=== PATIENT | female | born 1935 | race African-American/Black ===

== ENCOUNTER 2017-01-08 13:46 | Emergency (ER) | payer MEDICARE, MEDICAID ==
--- NOTE | 2017-01-08 15:03 | RAD ---
PA CHEST RADIOGRAPH WITH RIGHT RIB SERIES: Date: 01-08-17 Provided Clinical History: Chest pain status post fall. FINDINGS: Comparison is made with 10-24-12. The cardiac silhouette appears enlarged. Left subclavian cardiac pacing device is again noted in sim ilar position. There is no evidence for a displaced right sided rib fracture, pleural fluid or pneum othorax. IMPRESSION: No evidence for an acute cardiopulmonary process or displaced rib fracture. POS: [facility]
[2017-01-08] MEDS ORDERED: Naproxen 500 MG TAB ONE (15:17)
[2017-01-08] MEDS ORDERED: HYDROcodone/Acetaminophen 10/325 mg Tablet ONE (15:17)
== END 2017-01-08 15:24 | disposition home or self-care (01) ==
LOC: MADERS 13:46
DX: S20.211A Contusion of right front wall of thorax, initial encounter (principal); E78.5 Hyperlipidemia, unspecified; I25.10 Atherosclerotic heart disease of native coronary artery without angina pectoris; E03.9 Hypothyroidism, unspecified; I10 Essential (primary) hypertension; Z95.0 Presence of cardiac pacemaker; W01.0XXA Fall on same level from slipping, tripping and stumbling without subsequent striking against object, initial encounter

== ENCOUNTER 2017-03-15 12:02 | Outpatient (CLI) | payer MEDICAID, MEDICARE ==
[2017-03-15 12:51] LABS: #Basophils 0.1 thou/uL (0.0-0.2); #Eosinphils 0.2 thou/uL (0.0-0.7); #Monocytes 0.2 thou/uL (0.11-0.59); #Neutrophils 1.9 thou/uL (1.40-6.50); %Basophils 2.5 % (0.0-1.0); %Eosinophils 7.3 % (0.0-10.0); %Lymphocytes 28.4 % (21.0-51.0); %Monocytes 6.4 % (0.0-10.0); %Neutrophils 55.4 % (42.0-75.0); Hemoglobin 11.6 g/dL (12.0-16.0); Mean Corpuscular HGB CONC 32.4 g/dL (32.0-36.0); Mean Corpuscular Hemoglobin 30.6 pg (27.0-31.0); Mean Corpuscular Volume 94.4 fl (81.0-99.0); Mean Platelet Volume 10.3 fL (7.4-10.4); Platelet Count 182 thou/uL (130-400); RBC Distribution Width 13.9 % (11.5-14.5); Red Blood Cell (RBC) Count 3.81 mill/uL (4.20-5.40); White Blood Cell (WBC) Count 3.4 thou/uL (4.8-10.8)
[2017-03-15 13:07] LABS: ALT (SGPT) 11 U/L (8-55); AST (SGOT) 21 U/L (5-34); Albumin 4.2 g/dL (3.4-4.8); Alkaline Phosphatase 73 U/L (40-150); Anion Gap 16 mmol/L (10-20); BUN (Urea Nitrogen) 23 mg/dL (9.8-20.1); Bilirubin, Direct 0.1 mg/dL (0.1-0.3); Bilirubin, Total 0.4 mg/dL (0.2-1.2); Calc. Creatinine Clearance 0 mL/min (70-130); Calcium 10.5 mg/dL (7.8-10.44); Carbon Dioxide 22 mmol/L (23-31); Cardiac Risk 3.6 (Less than 4.5); Chloride 109 mmol/L (98-107); Cholesterol 180 mg/dl (< 200 Desired); Estimated GFR-MDRD 47; Glucose 75 mg/dL (83-110); HDL Cholesterol 50 mg/dL (>60 Neg Risk); LDL Cholesterol, Calculated 114 mg/dL; Potassium 4.3 mmol/L (3.5-5.1); Protein, Total 7.8 g/dL (6.0-8.3); Sodium 143 mmol/L (136-145); Triglycerides 82 mg/dL (Less than 150)
== END 2017-03-15 12:03 | disposition home or self-care (01) ==
LOC: MADLABBHPM 12:02
PROVIDERS: ATTEND Family Medicine
DX: E78.5 Hyperlipidemia, unspecified (principal); E03.9 Hypothyroidism, unspecified; N18.3 Chronic kidney disease, stage 3 (moderate)
CPT/HCPCS: 36415; 80048; 80061; 80076; 84443; 85025

== ENCOUNTER 2020-05-21 14:42 | Inpatient (IN) | payer MEDICARE, OTHER ==
[2020-05-21] MEDS ORDERED: D5W-AA 4.25% with LYTES 1,000 ML BAG IV SCH (17:15)
[2020-05-21] MEDS: D5W-AA 4.25% with LYTES 1,000 ML IV SCH (19:30)
[2020-05-21] MEDS: hydrALAZINE 25 MG TAB PO SCH (22:00)
[2020-05-21] MEDS: Amlodipine 5 MG TAB PO SCH (22:00)
[2020-05-22] MEDS: D5W-AA 4.25% with LYTES 1,000 ML IV SCH ×2 (05:18→21:26)
[2020-05-22] MEDS: Levothyroxine Sodium 75 MCG TAB PO SCH ×2 (05:20→05:48)
[2020-05-22 05:57] LABS: Anion Gap 15 mmol/L (10-20); BUN (Urea Nitrogen) 47 mg/dL (9.8-20.1); Calc. Creatinine Clearance 30 mL/min (70-130); Calcium 9.3 mg/dL (7.8-10.44); Carbon Dioxide 19 mmol/L (23-31); Chloride 108 mmol/L (98-107); Estimated GFR-MDRD 60; Glucose 117 mg/dL (83-110); Potassium 5.1 mmol/L (3.5-5.1); Sodium 137 mmol/L (136-145)
[2020-05-22 06:34] LABS: Hemoglobin 11.8 g/dL (12.0-16.0); Mean Corpuscular HGB CONC 31.2 g/dL (32.0-36.0); Mean Corpuscular Hemoglobin 27.9 pg (27.0-31.0); Mean Corpuscular Volume 89.5 fL (78.0-98.0); Mean Platelet Volume 9.2 fL (7.4-10.4); Platelet Count 329 thou/uL (130-400); RBC Distribution Width 12.1 % (11.5-14.5); Red Blood Cell (RBC) Count 4.22 mill/uL (4.20-5.40)
[2020-05-22 06:35] LABS: Manual Diff?? YES
[2020-05-22 06:38] LABS: Band 1 % (5-11); Lymphocytes 7 % (21-51); MDiff Complete? YES; Monocytes 4 % (0-10); Neutrophil 88 % (42-75)
[2020-05-22 06:39] LABS: Anisocytosis SLIGHT = 6-15 cells (100X) (0-5/hpf); Platelet Morphology Comment Appears Adequate; Poikilocytosis SLIGHT = 6-15 cells (100X) (0-5/hpf)
--- NOTE | 2020-05-22 07:59 | HP ---
CHIEF COMPLAINT: Weak and not eating. HISTORY OF PRESENT ILLNESS: The patient is an 84-year-old Krish female, who has a history of hypertension, coronary artery disease, and sick sinus syndrome, who also has a pacemaker. She has been losing weight prior to this admission. The patient lives with her older sister and has a niece who helps take care of the two of them. The patient was hospitalized at [facility] from 05/16/2020 until 05/21/2020. The patient was taken to the emergency room because she had had a decline in her mental status and she seemed weaker than usual and had some mild diarrhea. Her sister had tested positive for COVID the day before. The patient was hospitalized at [facility] and found to have a COVID pneumonia with chest x- ray showing bilateral mid lower lobe infiltrates. Her COVID nasal swab was positive on 05/16/2020 and her SARS-CoV-2 IgG antibody was positive with a number of 5.75 on 05/17. The patient was treated symptomatically. Her O2 saturation remained good and she did not require any high flow oxygen. She had a positive blood culture for strep pneumonia that was felt to be contamination. Her second blood culture had no growth. Her urine culture grew E coli with a colony count greater than 100,000 and with gardner sensitivity. The patient was treated supportively. The patient was initially treated with IV antibiotics for the UTI as she would not take oral medication. She did stabilize and felt that her COVID infection had been present for 2- to 3-week period since her antibody test was positive on 05/17. The patient was placed on Megace to try to stimulate her appetite and also was started on Clinimix E 75 mL/hr that is being given through a peripheral IV intended to use for about a week. The patient was transferred to [facility] for continuation of the IV Clinimix and also for physical therapy to try to work with her in an effort to try to improve her general functional capabilities. The patient was seen soon after her admission. She was awake, but could not give me any history of what had happened to her and did not know where she was. She did not understand the situation that she had been in. 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 The patient has undergone a previous EGD, found to have two large gastric ulcers. EGD with two large ulcers was on 05/14/2014. Biopsy showed no malignancy. This was done for GI bleed, but did not require transfusion. The patient has had previous EGD in 2009 that was normal. The patient has had a partial thyroidectomy for benign thyroid nodule. The pacemaker replacement was in October 2012. EF at that time was 55% to 60%. PRESENT MEDICATIONS: 1. Sertraline 25 mg at bedtime. 2. Amlodipine 5 mg at bedtime. 3. Acetaminophen 325 mg daily. 4. Aspirin 81 mg daily. 5. Clinimix E 75 mg IV. 6. Ferrous sulfate 325 mg daily. 7. Levothyroxine 75 mcg daily. 8. Pantoprazole 40 mg daily. 9. Megace 400 mg daily. 10. Florastor 250 mg daily. 11. Simvastatin 20 mg at bedtime. 12. Hydralazine 25 mg t.i.d. ALLERGIES: NO KNOWN ALLERGIES. REVIEW OF SYSTEMS: CONSTITUTIONAL: The patient does not know if she has had any recent fever or gained or lost any weight. HEAD AND NECK: The patient denies any runny nose or sore throat. PULMONARY: The patient denies any shortness of breath or cough. CARDIOVASCULAR: No chest pain. GI: The patient says she is not hungry, has not been eating. She has had no nausea, vomiting, or diarrhea. : The patient has been incontinent of urine. DERMATOLOGIC: The patient has had no rash or skin breakdown. NEUROLOGIC: The patient has not been noted to have any focal weakness, but is very confused. HABITS: Alcohol, none. Tobacco, none. SOCIAL HISTORY: The patient resides with an older sister and with a niece, who helps take care of her. Ordinarily, the patient is able to assist with all her ADLs. CODE STATUS: Full code. PHYSICAL EXAMINATION: GENERAL: Shows an 84-year-old Krish female, who is lying in bed. She is alert and is cooperative. The patient did not recognize who I was and she did not know that she was in [place]. She does not appear in any acute distress. VITAL SIGNS: Show a temperature of 97.1, pulse 69, respirations 19, O2 saturation 96% on room air, blood pressure 172/72. Her weight is 110. HEENT: Head, normocephalic and atraumatic. Ears, TMs are blocked by a small amount of cerumen. Eyes, pupils are equal, round, and reactive. Sclerae nonicteric. There is no discharge from the eyes. Nose, normal. Mouth and throat, mucous membranes are moist. The patient is edentulous. NECK: Carotids are equal and strong. No bruits. Thyroid, not enlarged. LUNGS: The patient will not take a deep breath. With the shallower breath sounds, they sound clear. HEART: Regular rate. The patient has a pacemaker in the left upper anterior chest. ABDOMEN: Scaphoid with no organomegaly. No areas of tenderness. EXTREMITIES: No edema. SKIN: No rash or ulcerations or breakdown. NEUROLOGIC: The patient is alert but disoriented to time, place and situation. She did not recognize me, who has been taking care of her for many years. She has some generalized weakness that is nonfocal. IMPRESSION: 1. Severe generalized weakness. a. Secondary to severe deconditioning from recent COVID pneumonia. 2. COVID-19 pneumonia. a. Hospitalized at [facility] from 05/16 until 05/21/2020 for the pneumonia. b. Chest x-ray showed bilateral mid and lower infiltrates. c. 05/16 COVID nasal swab positive for COVID-19. d. IgG antibody for SARS-CoV-2 IgG antibody positive with reading of 5.75. e. Improved and not requiring any supplemental O2. 3. Anorexia. a. Complicated by weight loss. b. Has been started on Megace. c. Has been placed on Clinimix IV for a week to try to help with her malnutrition. 4. Hypertension. 5. Dementia. 6. Bradycardia for which she has a pacemaker. 7. Coronary artery disease. 8. History of depression. 9. Hyperlipidemia. 10. History of anemia. 11. History of generalized osteoarthritis. 12. Gastroesophageal reflux disease. 13. Hypothyroidism. PLAN: The patient has been admitted to [facility] for continuation of the Clinimix in an effort to try to improve her malnutrition. The patient presently not eating. She has recently been placed on Megace to try to help stimulate her appetite. We will have Dietary see her and offer other suggestions. Physical Therapy and Occupational Therapy will see her to try to improve her general functional capabilities. For now, we will continue her in isolation since she has recently tested positive for COVID on 05/16. Her antibodies were positive on , indicating that this may be an infection that started two or three weeks prior to that. The patient presently is a full code. We will stop her simvastatin, do not feel like this has added anything with this patient's particular problems and age. Recheck CBC and CMP and TSH in the morning. Job ID: [id number] MTDD
[2020-05-22] MEDS: hydrALAZINE 25 MG TAB PO SCH ×3 (10:30→20:11)
[2020-05-22] MEDS: Saccharomyces boulardii 250 MG CAP PO SCH (10:30)
[2020-05-22] MEDS: Aspirin 81 mg Enteric Coated Tablet PO SCH (10:30)
[2020-05-22] MEDS: Megestrol Acetate 400 MG/10 ML UDCUP PO SCH (10:30)
--- NOTE | 2020-05-22 12:57 | PRG ---
DATE OF SERVICE: 05/22/2020 SUBJECTIVE: The patient is back in her bed. Physical therapist and occupational therapist were able to lift her up into a bedside chair for a short period, but then she has been placed back in bed, did not tolerate in the chair for too long. The patient is still not eating much. She said she ate, but there is no report that she did much. OBJECTIVE: GENERAL: The patient is lying in bed, alert, does not appear in any acute distress. VITAL SIGNS: Show temperature 97.7, pulse 66, respiration 18, O2 saturation 96% on room air, blood pressure 145/61. LUNGS: Clear. HEART: Regular rate. EXTREMITIES: No edema. LABORATORY DATA: Shows an H and H of 11.8 and 37.7, white blood cell count 7000 , 88% segs, 1% bands, 7% lymphocytes. Her sodium is 137, potassium 5.1, BUN is 47 , creatinine 1.05, glucose 117. ASSESSMENT: 1. Severe generalized weakness. a. Secondary to severe deconditioning from recent COVID pneumonia. 2. COVID-19 pneumonia. a. Hospitalized at [facility] from 05/16 until 05/21/2020 for pneumonia. b. Chest x-ray showed bilateral mid and lower lobe infiltrates. c. COVID-19 nasal swab positive on 05/16. SARS-CoV-2 IgG antibody positive with reading of 5.75 on 05/17. d. Clinically improved, not requiring any supplemental O2 as of 05/22. 3. Anorexia. a. Complicated by weight loss. Etiology of this is certainly contributed to by the COVID infection, but some of this had already begun prior to the COVID. Suspect that this may just be a decline associated with more advanced dementia. b. Has been placed on Megace. c. Has been placed on Clinimix IV for a week to try to help with the malnutrition. 4. Hypertension. 5. Advanced dementia. a. Suspect much of the anorexia and weight loss are from the advanced stages of the dementia. 6. 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 7. Coronary artery disease, asymptomatic. 8. History of depression. 9. Hyperlipidemia. 10. History of anemia. 11. History of generalized osteoarthritis. 12. Gastroesophageal reflux disease. 13. Hypothyroidism. PLAN: We will continue the isolation. With the SARS-CoV-2 IgG antibody positive on 05/17, suspect that her original infection has started 2 to 3 weeks previously. The patient though will need to remain in isolation at least for a 20-day period from onset, which is not known based on the antibody test of possible 2 to 3-week interval, then this onset may have been 05/05 approximately, that would put her presently at 18 days from onset for isolation. We will continue the isolation at least for another 3 days. Job ID: [id number] MTDD
[2020-05-22 13:49] LABS: Alkaline Phosphatase 63 U/L (40-110); Bilirubin, Total 0.2 mg/dL (0.2-1.2); Globulin 3.6 g/dL (2.4-3.5); Protein, Total 6.6 g/dL (5.8-8.1)
[2020-05-22 13:51] LABS: ALT (SGPT) 58 U/L (8-55); AST (SGOT) 50 U/L (5-34)
[2020-05-22] MEDS: Amlodipine 5 MG TAB PO SCH (20:11)
[2020-05-22] MEDS: Acetaminophen 325 MG TAB PO PRN (20:11)
[2020-05-23] MEDS: Levothyroxine Sodium 75 MCG TAB PO SCH (05:00)
[2020-05-23] MEDS: Saccharomyces boulardii 250 MG CAP PO SCH (07:49)
[2020-05-23] MEDS: Aspirin 81 mg Enteric Coated Tablet PO SCH (07:50)
[2020-05-23] MEDS: Megestrol Acetate 400 MG/10 ML UDCUP PO SCH (07:50)
[2020-05-23] MEDS: hydrALAZINE 25 MG TAB PO SCH ×3 (07:50→20:05)
[2020-05-23] MEDS: Pantoprazole 40 MG GRANULES PACKET PO SCH (08:32)
[2020-05-23] MEDS: D5W-AA 4.25% with LYTES 1,000 ML IV SCH ×2 (09:28→21:43)
[2020-05-23] MEDS: Acetaminophen 325 MG TAB PO PRN (20:05)
[2020-05-23] MEDS: Amlodipine 5 MG TAB PO SCH (20:06)
[2020-05-24] MEDS: Levothyroxine Sodium 75 MCG TAB PO SCH (05:26)
[2020-05-24] MEDS: hydrALAZINE 25 MG TAB PO SCH ×3 (08:20→20:26)
[2020-05-24] MEDS: Megestrol Acetate 400 MG/10 ML UDCUP PO SCH (08:20)
[2020-05-24] MEDS: Saccharomyces boulardii 250 MG CAP PO SCH (08:20)
[2020-05-24] MEDS: Aspirin 81 mg Enteric Coated Tablet PO SCH (08:20)
[2020-05-24] MEDS: Pantoprazole 40 MG GRANULES PACKET PO SCH (08:20)
[2020-05-24] MEDS: D5W-AA 4.25% with LYTES 1,000 ML IV SCH ×2 (10:17→22:41)
[2020-05-24] MEDS: Amlodipine 5 MG TAB PO SCH (20:26)
[2020-05-24] MEDS: Acetaminophen 325 MG TAB PO PRN (20:26)
[2020-05-25] MEDS: Levothyroxine Sodium 75 MCG TAB PO SCH (05:31)
--- NOTE | 2020-05-25 06:17 | PRG ---
DATE OF SERVICE: 05/24/2020 SUBJECTIVE: Nurses said that the patient ate a little better today, that she was coughing and had a little trouble with the chopped meats. This has been changed to blended meats and soft diet, and she seemed to be doing better with this. She has had no trouble with any coughing while eating and ate about 30% of her breakfast. Prior to this, she was not eating quite as much. The dietitian has seen her and recommended increasing the PPN to 75 mL per hour to provide all her protein needs, this is what the rate presently is at, and also recommended continuation of the Megace and offer Ensure Enlive 3 times a day. OBJECTIVE: GENERAL: The patient is lying in bed, is alert, appears comfortable , in no distress. VITAL SIGNS: Show a temperature of 97.6; pulse 71; respirations 16; O2 saturation 96% on room air; blood pressure 132/66, later reading was 150/70. LUNGS: There are some minimal rales at the bases. Otherwise, chest is clear. HEART: Regular rate. MOUTH: Mucous membranes are moist. EXTREMITIES: No edema. ASSESSMENT: 1. Severe generalized weakness. a. Secondary to severe deconditioning from recent COVID pneumonia. b. Stable as of 05/24. 2. COVID-19 pneumonia. a. Hospitalized at [facility] from 05/16 until 05/21 for pneumonia. b. Chest x-ray showed bilateral mid and lower lobe infiltrates. c. COVID-19 nasal swab positive on 05/16. SARS-CoV-2 IgG antibody positive with reading of 5.75 on 05/17. d. Clinically improved, not requiring any supplemental O2 as of 05/24. 3. Anorexia. a. Complicated by weight loss. The etiology of this is certainly contributed to by the recent COVID infection, but some of this had preexisted the infection. Suspect that this decline is associated with her advanced dementia. b. Continue on Megace. c. On Clinimix IV. d. On a soft diet with blended meats, which she is eating a little better, maybe 30%. 4. Hypertension. 5. Advanced dementia. Suspect much of the anorexia and weight loss are from the advanced stages of the dementia. 6. 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 7. Coronary artery disease, asymptomatic. 8. History of depression. 9. Hyperlipidemia. 10. History of anemia. 11. History of generalized osteoarthritis. 12. Gastroesophageal reflux disease. 13. Hypothyroidism. PLAN: We will continue the Clinimix for full 7 days at the 75 mL per hour. The patient will need to stay in the isolation for the COVID for 20 days past the nasal swab that was positive for COVID-19 on 05/16. This will mean that she will need to remain in isolation until 06/05. We will place the patient on supplement with Kush Chi t.i.cesar Job ID: [id number] MTDD
[2020-05-25] MEDS: Saccharomyces boulardii 250 MG CAP PO SCH (08:13)
[2020-05-25] MEDS: Aspirin 81 mg Enteric Coated Tablet PO SCH (08:13)
[2020-05-25] MEDS: hydrALAZINE 25 MG TAB PO SCH ×3 (08:13→20:22)
[2020-05-25] MEDS: Megestrol Acetate 400 MG/10 ML UDCUP PO SCH (08:13)
[2020-05-25] MEDS: Pantoprazole 40 MG GRANULES PACKET PO SCH (08:19)
--- NOTE | 2020-05-25 10:14 | PRG ---
DATE OF SERVICE: 05/25/2020 SUBJECTIVE: The patient has had therapy work with her a little bit this morning. Nurse said that she ate very little this morning, requested some milk of magnesia since she has not had a bowel movement for several days. OBJECTIVE: GENERAL: The patient is lying in a position sideways in bed. When name was called, she did awake, but she is a little resistant to examination. VITAL SIGNS: Show the patient is afebrile, pulse 69, blood pressure 143/68, O2 saturation 98% on room air. Her weight is 110, which is stable. LUNGS: Clear. HEART: Regular rate. ASSESSMENT: 1. Severe generalized weakness. a. Secondary to severe deconditioning from COVID pneumonia. b. Stable as of 05/25. 2. COVID-19 pneumonia. a. Hospitalized at [facility] from 05/16 until 05/21 for pneumonia. b. Chest x-ray showed bilateral mid and lower lung field infiltrates. c. COVID-19 nasal swab positive on 05/16. SARS-CoV-2 IgM antibody positive with reading of 5.57 on 05/17. d. Clinically stable. Does not require any supplemental O2 as of 05/25. 3. Anorexia. a. Complicated by weight loss, etiology of this is contributed to by the recent COVID infection, but some of this was pre-existing. Suspect she has been going through decline from her dementia. b. Continue on Megace. c. On Clinimix IV. d. On a soft diet with blended meat, which she is eating very small amounts as of 05/25. 4. Hypertension. 5. Advanced dementia. Suspect much of the anorexia and weight loss are from the advanced stages of the dementia. 6. Bradycardia for which she has a pacemaker. 7. Coronary artery disease. a. Asymptomatic. 8. History of depression. 9. Hyperlipidemia. 10. History of anemia. 11. History generalized osteoarthritis. 12. GERD. 13. Hypothyroidism. PLAN: Continue present care. Her prognosis is very guarded. Job ID: [id number] [facility]
[2020-05-25] MEDS ORDERED: Milk Of Magnesia 30 ML UDCUP PO PRN (10:53)
[2020-05-25] MEDS: D5W-AA 4.25% with LYTES 1,000 ML IV SCH ×2 (10:55→22:31)
[2020-05-25] MEDS: Acetaminophen 325 MG TAB PO PRN (20:21)
[2020-05-25] MEDS: Amlodipine 5 MG TAB PO SCH (20:22)
[2020-05-26] MEDS: Levothyroxine Sodium 75 MCG TAB PO SCH (05:52)
[2020-05-26] MEDS: Aspirin 81 mg Enteric Coated Tablet PO SCH (08:14)
[2020-05-26] MEDS: hydrALAZINE 25 MG TAB PO SCH ×3 (08:14→21:30)
[2020-05-26] MEDS: Saccharomyces boulardii 250 MG CAP PO SCH (08:14)
[2020-05-26] MEDS: Megestrol Acetate 400 MG/10 ML UDCUP PO SCH (08:14)
[2020-05-26] MEDS: Pantoprazole 40 MG GRANULES PACKET PO SCH (08:14)
--- NOTE | 2020-05-26 09:55 | PRG ---
DATE OF SERVICE: 05/26/2020 SUBJECTIVE: The patient says she is okay. She slept okay last night. Nurses say she is eating a little better. OBJECTIVE: GENERAL: The patient is lying in bed, is calm, appears in no distress. VITAL SIGNS: Shows temperature of 97.5, pulse 74, respirations 20, O2 saturation 95% on room air, blood pressure 133/81. LUNGS: Clear. HEART: Regular rate. EXTREMITIES: No edema. ASSESSMENT: 1. Generalized weakness, severe. a. Secondary to severe deconditioning from COVID pneumonia. b. Gradual improvement as of 05/26. 2. COVID-19 pneumonia. a. Hospitalized at [facility] from 05/16 until 05/21 for pneumonia. b. Chest x-ray showed bilateral mid lower lung field infiltrates. c. COVID-19 nasal swab positive on 05/16. SARS-CoV-2 IgG antibody positive with reading of 5.57 on 05/17. d. Clinically improved. Remains with normal O2 saturation on room air as of 05/26. 3. Anorexia. a. Complicated by weight loss. Etiology of this contributed to by the recent COVID infection, but some pre-existing weight loss and anorexia from probably her dementia. b. Continue the Megace. c. Continue the Clinimix IV. d. Continue the soft diet with blended meats. 4. Hypertension. 5. Advanced dementia. a. Suspect much of the anorexia and weight loss attributed to the advanced stages of the dementia. 6. Bradycardia for which she has a pacemaker. 7. Coronary heart disease, asymptomatic. 8. History of depression. 9. Hyperlipidemia. 10. History of dementia. 11. History of generalized osteoarthritis. 12. Gastroesophageal reflux disease. 13. Hypothyroidism. PLAN: Continue present care. Continue PT and OT. Continue the Clinimix. Job ID: [id number] MTDD
[2020-05-26 10:47] LABS: ALT (SGPT) 136 U/L (8-55); AST (SGOT) 119 U/L (5-34); Albumin 3.4 g/dL (3.4-4.8); Alkaline Phosphatase 107 U/L (40-110); Anion Gap 17 mmol/L (10-20); BUN (Urea Nitrogen) 55 mg/dL (9.8-20.1); Bilirubin, Total 0.2 mg/dL (0.2-1.2); Calc. Creatinine Clearance 29 mL/min (70-130); Calcium 10.2 mg/dL (7.8-10.44); Carbon Dioxide 17 mmol/L (23-31); Chloride 108 mmol/L (98-107); Estimated GFR-MDRD 57; Globulin 3.8 g/dL (2.4-3.5); Glucose 92 mg/dL (83-110); Protein, Total 7.2 g/dL (6.0-8.3); Sodium 136 mmol/L (136-145)
[2020-05-26] MEDS: D5W-AA 4.25% with LYTES 1,000 ML IV SCH (11:50)
[2020-05-26] MEDS ORDERED: D5W-AA 4.25% with LYTES 1,000 ML IV SCH (18:30)
[2020-05-26] MEDS: Acetaminophen 325 MG TAB PO PRN (21:30)
[2020-05-26] MEDS: Amlodipine 5 MG TAB PO SCH (21:30)
[2020-05-27 06:06] LABS: Anion Gap 17 mmol/L (10-20); BUN (Urea Nitrogen) 56 mg/dL (9.8-20.1); Calc. Creatinine Clearance 22 mL/min (70-130); Calcium 10.3 mg/dL (7.8-10.44); Carbon Dioxide 16 mmol/L (23-31); Chloride 110 mmol/L (98-107); Estimated GFR-MDRD 43; Glucose 90 mg/dL (83-110); Potassium 5.6 mmol/L (3.5-5.1); Sodium 137 mmol/L (136-145)
[2020-05-27 06:20] LABS: Band 3 % (5-11); Eosinophils 1 % (0-10); Hemoglobin 11.9 g/dL (12.0-16.0); Hypochromia SLIGHT = 6-15 cells (100X) (0-5/hpf); Lymphocytes 13 % (21-51); MDiff Complete? YES; Mean Corpuscular HGB CONC 31.6 g/dL (32.0-36.0); Mean Corpuscular Hemoglobin 28.4 pg (27.0-31.0); Mean Platelet Volume 8.6 fL (7.4-10.4); Metamyelocyte 1 % (0-0); Monocytes 17 % (0-10); Neutrophil 65 % (42-75); Nucleated RBC 1 % (0); Platelet Count 477 thou/uL (130-400); Platelet Morphology Comment Appears Adequate; RBC Distribution Width 12.3 % (11.5-14.5); Red Blood Cell (RBC) Count 4.18 mill/uL (4.20-5.40); Schistocytes SLIGHT = 2-5 cells (100X) (0-1/hpf); White Blood Cell (WBC) Count 5.6 thou/uL (4.8-10.8)
[2020-05-27] MEDS: Levothyroxine Sodium 75 MCG TAB PO SCH (11:33)
[2020-05-27] MEDS: Saccharomyces boulardii 250 MG CAP PO SCH (11:34)
[2020-05-27] MEDS: hydrALAZINE 25 MG TAB PO SCH ×3 (11:34→21:14)
[2020-05-27] MEDS: Aspirin 81 mg Enteric Coated Tablet PO SCH (11:34)
[2020-05-27] MEDS: Pantoprazole 40 MG GRANULES PACKET PO SCH (11:34)
[2020-05-27] MEDS: Megestrol Acetate 400 MG/10 ML UDCUP PO SCH (11:34)
[2020-05-27] MEDS: Amino Acids 4.25 %/Dextrose 5% 1,000 ML IV SCH (15:19)
[2020-05-27] MEDS ORDERED: Bisacodyl 10 MG SUPP PR PRN (17:02)
[2020-05-27] MEDS: Amlodipine 5 MG TAB PO SCH (21:14)
[2020-05-27] MEDS: Acetaminophen 325 MG TAB PO PRN (21:14)
[2020-05-28] MEDS: Amino Acids 4.25 %/Dextrose 5% 1,000 ML IV SCH (04:22)
[2020-05-28] MEDS: Levothyroxine Sodium 75 MCG TAB PO SCH (04:23)
--- NOTE | 2020-05-28 06:29 | PRG ---
DATE OF SERVICE: 05/27/2020 SUBJECTIVE: Nurses are still having to coax patient to eat what little she will eat. Relative had called and asked if she was on her sertraline. This has helped at home with the restlessness. This inadvertently had not been restarted on her admission here. This has been started. Yesterday her potassium was elevated to 6.0. She is a difficult stick and it is felt some of this may be from hemolysis. Also her, Clinimix has 30 mEq of KCl per L. This was held and the potassium was rechecked this morning, it was 5.6. Her liver studies were elevated yesterday, the AST to 119 and ALT to 136. Her BUN was up to 55 and creatinine 1.1. OBJECTIVE: GENERAL: The patient is lying in bed. She is alert, appears in no acute distress. VITAL SIGNS: Show a temperature 97.1, pulse 75, respirations 18, O2 saturation 95%, blood pressure 129/71. LUNGS: Clear. HEART: Regular rate. EXTREMITIES: No edema. ASSESSMENT: 1. Generalized weakness, severe. a. Secondary to severe deconditioning and from the COVID-19 pneumonia. b. Still required assistance with all her ADLs and primarily at bedrest as of 05/27. 2. COVID-19 pneumonia. a. Hospitalized at [facility] from 05/16 until 05/21 for pneumonia. b. Chest x-ray showed bilateral mid and lower lung field infiltrates. c. COVID-19 nasal swab positive on 05/16. SARS-CoV-2 IgG antibody positive with reading of 5.57 on 05/17. d. Clinically improved. O2 saturation remains normal on room air as of 05/27. 3. Anorexia. a. Complicated by weight loss. Etiology of this could be secondary to recent COVID pneumonia but also contributed to by her pre-existing dementia. b. Continue the Megace. c. Clinimix was held on 05/26/2020 due to elevated potassium. That is improved and will be restarted without the potassium as of 05/27. d. Continue pureed diet. 4. Hypertension. 5. Advanced dementia. 6. Bradycardia for which she has a pacemaker. 7. Coronary heart disease, asymptomatic. 8. History of depression. 9. Hyperlipidemia. 10. History of dementia. 11. History of generalized osteoarthritis. 12. Gastroesophageal reflux disease. 13. Hypothyroidism. 14. Hyperkalemia. a. Secondary to the Clinimix with potassium and possible hemolysis noted on 05/26. b. Improved since Clinimix held with potassium dropping from 6 to 5.6 as of 05/27. 15. Abnormal liver function studies. PLAN: I have restarted the Clinimix without the potassium. This will continue to have the dextrose and amino acids. We will recheck potassium and liver studies on Monday, 05/29. Continue to encourage the patient to eat. I have started the patient back on the sertraline. We will also stop her probiotic. The patient's long-term prognosis is very guarded. Job ID: [id number] MTDD
[2020-05-28] MEDS: Pantoprazole 40 MG GRANULES PACKET PO SCH (08:30)
[2020-05-28] MEDS: Megestrol Acetate 400 MG/10 ML UDCUP PO SCH (08:30)
[2020-05-28] MEDS: Polyethylene Glycol 3350 17 GM Packet PO SCH (08:30)
[2020-05-28] MEDS: hydrALAZINE 25 MG TAB PO SCH ×3 (08:30→20:24)
[2020-05-28] MEDS: Aspirin 81 mg Enteric Coated Tablet PO SCH (08:30)
[2020-05-28] MEDS: Amino Acids 4.25 %/Dextrose 5% 2,000 ML IV SCH (16:47)
[2020-05-28] MEDS: Amlodipine 5 MG TAB PO SCH (20:24)
[2020-05-29] MEDS: Levothyroxine Sodium 75 MCG TAB PO SCH (06:01)
[2020-05-29] MEDS: Pantoprazole 40 MG GRANULES PACKET PO SCH (08:10)
[2020-05-29] MEDS: Megestrol Acetate 400 MG/10 ML UDCUP PO SCH (08:10)
[2020-05-29] MEDS: hydrALAZINE 25 MG TAB PO SCH ×3 (08:10→20:39)
[2020-05-29] MEDS: Aspirin 81 mg Enteric Coated Tablet PO SCH (08:10)
[2020-05-29] MEDS: Polyethylene Glycol 3350 17 GM Packet PO SCH (08:11)
--- NOTE | 2020-05-29 11:04 | PRG ---
DATE OF SERVICE: 05/29/2020 SUBJECTIVE: The patient is up this morning in a geriatric chair. She is a little restless sitting there, but does not appear to be in any discomfort. She is alert. Nurses said she just would not eat any breakfast. OBJECTIVE: GENERAL: The patient is a little restless, sitting in a chair, but not in any distress. VITAL SIGNS: Show a temperature 98.9, pulse 77, respirations 18, O2 saturation 96% on room air, and blood pressure 167/90. Her weight is 106, down from an admission weight of 110. LUNGS: Clear. HEART: Regular rate. MOUTH: Mucous membranes are moist. EXTREMITIES: No edema. LABORATORY DATA: Lab for the day is pending. ASSESSMENT: 1. Generalized weakness, severe. a. Secondary to severe deconditioning from the recent COVID pneumonia. b. Still requires assistance with all her ADLs. Primarily at bedrest and tolerating sitting up in a chair some as of 05/29. 2. COVID-19 pneumonia. a. Hospitalized at [facility] from 05/16 until 05/21 for pneumonia and urinary tract infection. b. Chest x-ray showed bilateral mid lower lobe field infiltrates. c. COVID-19 nasal swab positive on 05/16. SARS-CoV-2 IgG antibody positive with reading 5.75 d. Clinically improved with clear lungs and O2 saturation 95% on room air as of 05/29. 3. Anorexia. a. Complicated by weight loss, etiology of this is secondary to recent COVID infection but also contributed to by her preexisting dementia. b. Continue the Megace. c. Continue the Clinimix without potassium supplementation. d. Continue pureed diet. e. Still not eating and weight down from admission of 110 to 106 as of 05/29. 4. Hypertension. 5. Advanced dementia. a. Complicated by anorexia and weight loss. 6. 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 7. Coronary artery disease, asymptomatic. 8. History of depression. 9. Hyperlipidemia. 10. History of generalized osteoarthritis. 11. Gastroesophageal reflux disease. 12. Hypothyroidism. 13. Hyperkalemia. a. Secondary to the Clinimix with the potassium and possible hemolysis noted on 05/16. b. Improved. Clinimix initially held, but restarted without potassium. Potassium dropped from 6 to 5.6 as of 05/27. 14. Abnormal liver studies. PLAN: CMP scheduled for today. Continue the Clinimix. Continue the Megace. I have restarted her on the sertraline in the hopes this will help little with her restlessness. The patient's long range prognosis is very poor with her dementia and the continued anorexia. Job ID: [id number] MTDD
[2020-05-29] MEDS: Amino Acids 4.25 %/Dextrose 5% 2,000 ML IV SCH (18:41)
[2020-05-29] MEDS: Amlodipine 5 MG TAB PO SCH (20:39)
[2020-05-29 21:08] LABS: ALT (SGPT) 69 U/L (8-55); AST (SGOT) 34 U/L (5-34); Albumin 3.2 g/dL (3.4-4.8); Alkaline Phosphatase 105 U/L (40-110); Anion Gap 14 mmol/L (10-20); BUN (Urea Nitrogen) 62 mg/dL (9.8-20.1); Bilirubin, Total 0.2 mg/dL (0.2-1.2); Calc. Creatinine Clearance 22 mL/min (70-130); Calcium 9.6 mg/dL (7.8-10.44); Carbon Dioxide 15 mmol/L (23-31); Chloride 113 mmol/L (98-107); Estimated GFR-MDRD 44; Globulin 3.6 g/dL (2.4-3.5); Glucose 100 mg/dL (83-110); Potassium 4.5 mmol/L (3.5-5.1); Protein, Total 6.8 g/dL (6.0-8.3); Sodium 137 mmol/L (136-145)
[2020-05-30] MEDS: Levothyroxine Sodium 75 MCG TAB PO SCH (05:32)
[2020-05-30] MEDS: hydrALAZINE 25 MG TAB PO SCH ×3 (08:41→19:59)
[2020-05-30] MEDS: Aspirin 81 mg Enteric Coated Tablet PO SCH (08:41)
[2020-05-30] MEDS: Polyethylene Glycol 3350 17 GM Packet PO SCH (08:42)
[2020-05-30] MEDS: Megestrol Acetate 400 MG/10 ML UDCUP PO SCH (08:42)
[2020-05-30] MEDS: Pantoprazole 40 MG GRANULES PACKET PO SCH (08:42)
[2020-05-30] MEDS: Amino Acids 4.25 %/Dextrose 5% 2,000 ML IV SCH (17:08)
--- NOTE | 2020-05-30 18:31 | PRG ---
DATE OF SERVICE: 05/30/2020 SUBJECTIVE: The patient had no complaint today. Her niece, Jaky was in earlier today, was able to get her to eat 75% of her breakfast and drank her apple juice with much encouragement. This is the best that she has eaten. OBJECTIVE: GENERAL: The patient is lying in bed, alert, in no distress. VITAL SIGNS: Her temperature is 98.5, pulse 78, respirations 20, O2 saturation 96% on room air, blood pressure 124/67. HEENT: Her mouth, mucous membranes are moist. LUNGS: Clear. HEART: Regular rate. EXTREMITIES: No edema. LABORATORY DATA: Her labs that was done last evening showed a sodium of 137, potassium is 4.5, her CO2 is 15, anion gap 14, chloride 113, her BUN is 62, creatinine is 1.37, GFR stable at 44. Her alkaline phos is 105. Her AST has dropped from a high of 119 to 34, and her ALT has dropped from a high of 136 to 69. Her albumin is 3.2, which is stable. ASSESSMENT: 1. Generalized weakness, severe. a. Secondary to severe deconditioning from recent COVID pneumonia and UTI. b. Still requiring assistance with all her ADLs. Primarily bedrest, but tolerating sitting up in a chair for short periods as of 05/30. 2. COVID-19 pneumonia. a. Hospitalized at [facility] from 05/16 until 05/21 for pneumonia and UTI. The chest x-ray showed bilateral mid and lower lobe infiltrates. b. COVID-19 nasal swab positive on 05/16. SARS-CoV-2 IgG antibody positive with reading of 5.75. c. Clinically improved with clear lungs, O2 saturation 95% on room air as of 05/30. 3. Anorexia. a. Complicated by weight loss. Etiology of this secondary to recent COVID infection that contributed to by her preexisting dementia. b. Continue Megace. c. Presently on the Clinimix. d. On pureed diet. e. Ate better this morning as of 05/30 with her niece feeding her. 4. Hypertension. 5. Advanced dementia. a. Complicated by anorexia and weight loss. b. Requires presently total care. 6. 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 7. Coronary artery disease. Asymptomatic. 8. History of depression. 9. Hyperlipidemia. 10. Generalized osteoarthritis. 11. Gastroesophageal reflux disease. 12. Hypothyroidism. 13. Hyperkalemia. a. Resolved with potassium of 4.5 as of 05/30. 14. Abnormal liver studies. Normalized with mild elevation of ALT. PLAN: Continue present care. Continue Clinimix. Hopefully, the patient will continue eating. Job ID: [id number] MTDD
[2020-05-30] MEDS: Amlodipine 5 MG TAB PO SCH (20:00)
[2020-05-31] MEDS: Levothyroxine Sodium 75 MCG TAB PO SCH (05:34)
[2020-05-31] MEDS: Aspirin 81 mg Enteric Coated Tablet PO SCH (08:54)
[2020-05-31] MEDS: hydrALAZINE 25 MG TAB PO SCH ×3 (08:54→20:56)
[2020-05-31] MEDS: Pantoprazole 40 MG GRANULES PACKET PO SCH (08:54)
[2020-05-31] MEDS: Megestrol Acetate 400 MG/10 ML UDCUP PO SCH (08:55)
[2020-05-31] MEDS: Polyethylene Glycol 3350 17 GM Packet PO SCH (08:55)
[2020-05-31] MEDS: Amino Acids 4.25 %/Dextrose 5% 2,000 ML IV SCH (16:59)
[2020-05-31] MEDS: Amlodipine 5 MG TAB PO SCH (20:55)
[2020-06-01] MEDS: Levothyroxine Sodium 75 MCG TAB PO SCH (05:59)
[2020-06-01] MEDS: Polyethylene Glycol 3350 17 GM Packet PO SCH ×2 (08:07→08:11)
[2020-06-01] MEDS: hydrALAZINE 25 MG TAB PO SCH ×3 (08:07→20:18)
[2020-06-01] MEDS: Aspirin 81 mg Enteric Coated Tablet PO SCH (08:07)
[2020-06-01] MEDS: Pantoprazole 40 MG GRANULES PACKET PO SCH (08:07)
[2020-06-01] MEDS: Megestrol Acetate 400 MG/10 ML UDCUP PO SCH (08:07)
--- NOTE | 2020-06-01 09:08 | PRG ---
DATE OF SERVICE: 06/01/2020 SUBJECTIVE: The patient is up in a chair this morning. She, intermittently, is smiling, appears comfortable. She did not have any complaint. Nurse still struggled to try to get her to eat. Seemed like when the niece has been in, she eats better for her. OBJECTIVE: GENERAL: The patient is alert, appears comfortable, in no distress. VITAL SIGNS: Temperature is 97.6, pulse 67, respirations 18, O2 saturation 100% on room air, blood pressure 146/67. LUNGS: Clear. HEART: Regular rate. EXTREMITIES: No edema. ASSESSMENT: 1. Generalized weakness, severe. a. Secondary to severe deconditioning from recent COVID pneumonia and urinary tract infection. b. Still requiring assistance with all her ADLs. Primarily bedrest, but tolerating sitting up in a chair for longer periods as of 06/01. 2. COVID-19 pneumonia. a. Hospitalized at [facility] from 05/16 until 05/21 for pneumonia and urinary tract infection. Chest x-ray showed bilateral mid and lower lobe infiltrates. b. COVID-19 nasal swab positive on 05/16. SARS-CoV-2 IgG antibody positive with reading of 5.57 on 05/17. c. Clinically resolved. O2 saturation remains 95% or above on room air and lungs are clear as of 06/01. 3. Anorexia. a. Complicated by weight loss. Etiology secondary to recent COVID infection and urinary tract infection and contributed to by her pre-existing dementia. b. On Megace. c. Continued on IV Clinimix. d. On pureed diet. 4. Hypertension. 5. Dementia. a. Complicated by anorexia and weight loss. b. Requires total care. 6. 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 7. Coronary artery disease, asymptomatic. 8. History of depression. 9. Hyperlipidemia. 10. Gastroesophageal reflux disease, controlled. 11. Hypothyroidism. 12. Hyperkalemia, resolved. 13. Abnormal liver studies, normalized except for very mild elevation of ALT. PLAN: We will continue present care. Continue PT and OT. Continue encouragement for eating. Job ID: [id number] [facility]
[2020-06-01] MEDS: Amino Acids 4.25 %/Dextrose 5% 2,000 ML IV SCH (16:59)
[2020-06-01] MEDS: Amlodipine 5 MG TAB PO SCH (20:17)
[2020-06-02] MEDS: Levothyroxine Sodium 75 MCG TAB PO SCH (05:22)
[2020-06-02 05:36] LABS: ALT (SGPT) 30 U/L (8-55); AST (SGOT) 18 U/L (5-34); Albumin 3.3 g/dL (3.4-4.8); Alkaline Phosphatase 94 U/L (40-110); Anion Gap 12 mmol/L (10-20); BUN (Urea Nitrogen) 62 mg/dL (9.8-20.1); Bilirubin, Total Less than 0.2 mg/dL (0.2-1.2); Calc. Creatinine Clearance 24 mL/min (70-130); Calcium 10.3 mg/dL (7.8-10.44); Carbon Dioxide 14 mmol/L (23-31); Chloride 118 mmol/L (98-107); Estimated GFR-MDRD 49; Globulin 3.7 g/dL (2.4-3.5); Glucose 99 mg/dL (83-110); Potassium 4.5 mmol/L (3.5-5.1); Sodium 139 mmol/L (136-145)
[2020-06-02] MEDS: hydrALAZINE 25 MG TAB PO SCH ×3 (08:30→20:33)
[2020-06-02] MEDS: Aspirin 81 mg Enteric Coated Tablet PO SCH (08:30)
[2020-06-02] MEDS: Megestrol Acetate 400 MG/10 ML UDCUP PO SCH (08:30)
[2020-06-02] MEDS: Polyethylene Glycol 3350 17 GM Packet PO SCH (08:30)
[2020-06-02] MEDS: Pantoprazole 40 MG GRANULES PACKET PO SCH (08:30)
--- NOTE | 2020-06-02 12:37 | PRG ---
DATE OF SERVICE: 06/02/2020 SUBJECTIVE: The patient is up sitting in the chair, is eating a little bit of her breakfast, has been eating a little bit better. Last night, the nurse was able to get her to eat a pudding and drink an Ensure. The patient has been on the Clinimix here for a 10-day period. This is a partial parenteral nutrition, was just meant to be temporary. Her IV infiltrated and could not readily be restarted last evening. It was time to stop the Clinimix anyway, so this was discontinued and the IV was discontinued. OBJECTIVE: GENERAL: The patient is sitting up in a chair. She is alert, appears comfortable, in no distress. VITAL SIGNS: Her temperature is 97.5, pulse 77, respirations 18, O2 saturation 98% on room air, blood pressure 167/57. LUNGS: Clear. HEART: Regular rate. EXTREMITIES: No edema. LABORATORY DATA: Shows a sodium of 139, potassium 4.5, BUN stable at 62, creatinine 1.26, GFR is 49, improved from a low of 43. Her AST is now normal at 18, ALT normal at 30. Albumin is increased from 3.0 to 3.3. ASSESSMENT: 1. Generalized weakness, severe. a. Secondary to severe deconditioning from recent Coronavirus disease pneumonia and urinary tract infection. b. Still requiring assistance with all her ADLs. Tolerating longer periods up in a chair and has taken a few steps with PT as of 06/02. 2. Coronavirus disease-19 pneumonia. a. Hospitalized at [facility] from 05/16 until 05/21 for pneumonia and urinary tract infection. Chest x-ray showed bilateral mid and lower lobe infiltrates. b. Coronavirus disease nasal swab positive on 05/16. SARS-CoV-2 IgG antibody positive on 05/17. c. Clinically resolved. O2 saturation remains 95% on room air. Lungs remain clear as of 06/02. 3. Anorexia. a. Complicated by weight loss. Etiology secondary to recent Coronavirus disease infection and urinary tract infection and contributed to by her pre- existing dementia. b. On Megace. c. Clinimix, partial parenteral nutrition, discontinued on the evening of 06/01. d. On pureed diet, eating a little better as of 06/02. 4. Hypertension. 5. Dementia. 6. 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 7. Coronary artery disease. Asymptomatic. 8. Depression. 9. Hyperlipidemia. 10. Gastroesophageal reflux disease. 11. Hypothyroidism. 12. Abnormal liver function studies, resolved as of 06/02. PLAN: The Clinimix and IV site were discontinued last evening. Continue to encourage patient to eat. Continue her Megace. Continue PT and OT. Job ID: [id number] MTDD
[2020-06-02] MEDS ORDERED: Fluconazole 100 MG TAB PO SCH (13:45)
[2020-06-02] MEDS: Nystatin 500,000 UNITS/5 ML UDCUP SSW SCH ×2 (15:52→20:34)
[2020-06-02] MEDS: Amlodipine 5 MG TAB PO SCH (20:34)
[2020-06-03] MEDS: Levothyroxine Sodium 75 MCG TAB PO SCH (05:51)
[2020-06-03] MEDS: Nystatin 500,000 UNITS/5 ML UDCUP SSW SCH ×4 (08:27→20:04)
[2020-06-03] MEDS: Polyethylene Glycol 3350 17 GM Packet PO SCH (08:27)
[2020-06-03] MEDS: hydrALAZINE 25 MG TAB PO SCH ×3 (08:27→20:03)
[2020-06-03] MEDS: Fluconazole 100 MG TAB PO SCH (08:27)
[2020-06-03] MEDS: Megestrol Acetate 400 MG/10 ML UDCUP PO SCH (08:27)
[2020-06-03] MEDS: Aspirin 81 mg Enteric Coated Tablet PO SCH (08:27)
[2020-06-03] MEDS: Pantoprazole 40 MG GRANULES PACKET PO SCH (08:28)
[2020-06-03] MEDS: Amlodipine 5 MG TAB PO SCH (20:04)
[2020-06-04] MEDS: Levothyroxine Sodium 75 MCG TAB PO SCH (06:04)
[2020-06-04] MEDS: Fluconazole 100 MG TAB PO SCH (08:35)
[2020-06-04] MEDS: hydrALAZINE 25 MG TAB PO SCH ×3 (08:35→21:51)
[2020-06-04] MEDS: Megestrol Acetate 400 MG/10 ML UDCUP PO SCH (08:36)
[2020-06-04] MEDS: Nystatin 500,000 UNITS/5 ML UDCUP SSW SCH ×4 (08:36→21:52)
[2020-06-04] MEDS: Aspirin 81 mg Enteric Coated Tablet PO SCH (08:36)
[2020-06-04] MEDS: Polyethylene Glycol 3350 17 GM Packet PO SCH (08:36)
[2020-06-04] MEDS: Pantoprazole 40 MG GRANULES PACKET PO SCH (08:36)
--- NOTE | 2020-06-04 10:11 | PRG ---
DATE OF SERVICE: 06/04/2020 SUBJECTIVE: The patient is lying in bed. Therapist fixing to get her up in a chair and she will have breakfast. She is able to stand and walk some, but requires 2 people assisting, she will not use a walker. She is still eating small amounts and requiring coaxing to eat what she does. OBJECTIVE: GENERAL: The patient is alert, appears in no acute distress. VITAL SIGNS: Show a temperature 97.9, pulse 76, blood pressure 130/63, O2 saturation 96% on room air. LUNGS: Clear. HEART: Regular rate. EXTREMITIES: No edema. ASSESSMENT: 1. Generalized weakness, severe. a. Secondary to severe deconditioning from recent coronavirus disease with pneumonia and also urinary tract infection. b. Still requires assistance with her ADLs. Sits up in a chair. She can walk with 2 people assisting her, will not use a walker as of 06/04. 2. Coronavirus pneumonia. a. Hospitalized at [facility] from 05/16 until 05/21 for pneumonia and UTI. X-ray showed bilateral mid and lower lobe infiltrates. b. Coronavirus disease-19 nasal swab positive on 05/16. SARS-CoV-2 IgG antibody positive on 05/17. c. Clinically resolved. O2 saturation remains 95% or greater on room air. Lungs remain clear. 3. Anorexia. a. Complicated by weight loss. Etiology secondary to recent COVID infection and urinary tract infection and contributed to by her preexisting dementia. b. On Megace. c. On a pureed diet. 4. Hypertension. 5. Dementia. 6. Bradycardia for which she has a pacemaker. 7. Coronary artery disease, asymptomatic. 8. Depression. 9. Hyperlipidemia. 10. Gastroesophageal reflux disease. 11. Hypothyroidism. PLAN: Continue trying to coax the patient to eat. Continue Megace. Continue PT and OT. Job ID: [id number] MTDD
[2020-06-04 13:13] VITALS: BMI 20.2
[2020-06-04] MEDS: Amlodipine 5 MG TAB PO SCH (21:51)
[2020-06-05] MEDS: Levothyroxine Sodium 75 MCG TAB PO SCH (05:31)
[2020-06-05] MEDS: hydrALAZINE 25 MG TAB PO SCH ×4 (08:35→21:45)
[2020-06-05] MEDS: Pantoprazole 40 MG GRANULES PACKET PO SCH (08:35)
[2020-06-05] MEDS: Fluconazole 100 MG TAB PO SCH (08:35)
[2020-06-05] MEDS: Megestrol Acetate 400 MG/10 ML UDCUP PO SCH (08:36)
[2020-06-05] MEDS: Polyethylene Glycol 3350 17 GM Packet PO SCH (08:36)
[2020-06-05] MEDS: Aspirin 81 mg Enteric Coated Tablet PO SCH (08:36)
[2020-06-05] MEDS: Nystatin 500,000 UNITS/5 ML UDCUP SSW SCH ×5 (08:36→21:47)
--- NOTE | 2020-06-05 11:28 | PRG ---
DATE OF SERVICE: 06/05/2020 SUBJECTIVE: The patient is back in her bed with the head elevated. She is awake, attempts to talk a little bit, but I cannot understand what she is saying. Nurses said she only ate about three bites of her breakfast. OBJECTIVE: GENERAL: The patient looks comfortable, in no distress. VITAL SIGNS: Show a temperature of 96.4, pulse 82, respirations 18, O2 saturation 98% on room air, and blood pressure 155/78. Her admission weight here was 110. Yesterday's weight was 103. LUNGS: Clear. HEART: Regular rate. HEENT: Mouth, mucous membranes are moist. EXTREMITIES: No edema. ASSESSMENT: 1. Generalized weakness, severe. a. Secondary to severe deconditioning from recent coronavirus disease with pneumonia and urinary tract infection. b. Still requires assistance with all her ADLs, is able to sit up in a chair. Any transfer requires two people. 2. Coronavirus pneumonia. a. Hospitalized at [facility] from 05/16 until 05/21 for pneumonia and urinary tract infection. X-rays then showed bilateral mid and lower lobe infiltrates. b. Coronavirus-19 nasal swab positive on 05/16. SARS-CoV-2 IgG antibody positive on 05/17. c. Clinically resolved. The O2 saturation remains in the 95% or above and lungs clear as of 06/05. 3. Anorexia. a. Complicated by weight loss. b. Etiology secondary to recent COVID infection and urinary tract infection and contributed to by her preexisting dementia. c. On Megace. d. On pureed diet. e. Admission weight 110, present weight 103 as of 06/05. 4. Hypertension. 5. Dementia. 6. 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 7. Coronary artery disease. Asymptomatic. 8. Depression, stable. 9. Hypothyroidism. PLAN: We will continue present care. Occupational therapy will probably be backing out of her care because of minimal progress. I spoke with her niece, Jaky Oliveira, and she is well aware of her situation. I reviewed this with her. At the time of discharge, Jaky is wanting to try to manage her at home. In fact, she may do a little bit better in her own environment and with Jaky, who is used to encouraging and feeding her. Tentatively, we will look toward one day next week, Monday or Monday for discharge. She said she will try this, and if it just gets beyond her capability, would consider a assisted. Job ID: [id number] MTDD
[2020-06-05] MEDS: Amlodipine 5 MG TAB PO SCH (20:52)
[2020-06-06] MEDS: Levothyroxine Sodium 75 MCG TAB PO SCH (05:05)
[2020-06-06] MEDS: Megestrol Acetate 400 MG/10 ML UDCUP PO SCH (08:11)
[2020-06-06] MEDS: Fluconazole 100 MG TAB PO SCH (08:11)
[2020-06-06] MEDS: Aspirin 81 mg Enteric Coated Tablet PO SCH (08:11)
[2020-06-06] MEDS: Pantoprazole 40 MG GRANULES PACKET PO SCH (08:11)
[2020-06-06] MEDS: hydrALAZINE 25 MG TAB PO SCH ×3 (08:11→20:18)
[2020-06-06] MEDS: Nystatin 500,000 UNITS/5 ML UDCUP SSW SCH ×4 (08:11→20:18)
[2020-06-06] MEDS: Polyethylene Glycol 3350 17 GM Packet PO SCH (08:12)
[2020-06-06] MEDS: Amlodipine 5 MG TAB PO SCH (20:18)
[2020-06-07] MEDS: Levothyroxine Sodium 75 MCG TAB PO SCH (05:20)
[2020-06-07] MEDS: Pantoprazole 40 MG GRANULES PACKET PO SCH (08:12)
[2020-06-07] MEDS: Nystatin 500,000 UNITS/5 ML UDCUP SSW SCH ×5 (08:12→21:11)
[2020-06-07] MEDS: Megestrol Acetate 400 MG/10 ML UDCUP PO SCH (08:12)
[2020-06-07] MEDS: hydrALAZINE 25 MG TAB PO SCH ×3 (08:12→21:11)
[2020-06-07] MEDS: Aspirin 81 mg Enteric Coated Tablet PO SCH (08:13)
[2020-06-07] MEDS: Fluconazole 100 MG TAB PO SCH (08:13)
[2020-06-07] MEDS: Polyethylene Glycol 3350 17 GM Packet PO SCH (08:14)
[2020-06-07] MEDS: Amlodipine 5 MG TAB PO SCH (21:02)
[2020-06-08] MEDS: Levothyroxine Sodium 75 MCG TAB PO SCH (05:07)
[2020-06-08] MEDS: Megestrol Acetate 400 MG/10 ML UDCUP PO SCH (08:08)
[2020-06-08] MEDS: Polyethylene Glycol 3350 17 GM Packet PO SCH (08:08)
[2020-06-08] MEDS: Fluconazole 100 MG TAB PO SCH (08:09)
[2020-06-08] MEDS: Pantoprazole 40 MG GRANULES PACKET PO SCH (08:09)
[2020-06-08] MEDS: Nystatin 500,000 UNITS/5 ML UDCUP SSW SCH ×4 (08:09→21:18)
[2020-06-08] MEDS: Aspirin 81 mg Enteric Coated Tablet PO SCH (08:09)
[2020-06-08] MEDS: hydrALAZINE 25 MG TAB PO SCH ×3 (08:09→21:18)
--- NOTE | 2020-06-08 11:34 | PRG ---
DATE OF SERVICE: 06/08/2020 SUBJECTIVE: Nurses report no change in patient. The patient is still not eating well. OBJECTIVE: GENERAL: The patient is lying in bed. She is awake and appears comfortable. VITAL SIGNS: Her temperature is 96.9, pulse 66, respirations 18, O2 saturation 99% on room air, blood pressure 147/65. LUNGS: Clear. HEART: Regular rate. EXTREMITIES: No edema. ASSESSMENT: 1. Generalized weakness, severe. a. Secondary to severe deconditioning from recent winters virus disease with pneumonia and also urinary tract infection. b. Still requires assistance with all her ADLs. Tolerates sitting up in a chair. Can walk some with assistance as of 06/08. 2. Winters virus pneumonia. a. Hospitalized at [facility] from 05/16 until 05/21 for pneumonia and UTI. X-rays then showed bilateral mid and lower lobe infiltrates. b. COVID-19 nasal swab positive on 05/16. SARS-CoV-2 IgG antibody positive on 05/17. c. Clinically resolved as of 06/08 with the lungs remaining clear and patient afebrile. 3. Anorexia. a. Complicated by weight loss. b. Etiology secondary to recent COVID-19 infection and UTI and contributed to by her preexisting dementia. 4. Hypertension. 5. Dementia. 6. Bradycardia for which she has a pacemaker. 7. Coronary artery disease. a. Asymptomatic. 8. Depression, stable. 9. Hypothyroidism. PLAN: Continue efforts with therapy. Continue encouragement to eat. The patient's niece, Jaky Oliveira plans on trying to manage her at home. Anticipated discharge this week either Monday or June 12. Job ID: [id number] MTDD
[2020-06-08] MEDS: Amlodipine 5 MG TAB PO SCH (21:18)
[2020-06-09] MEDS: Levothyroxine Sodium 75 MCG TAB PO SCH (05:12)
[2020-06-09] MEDS: Nystatin 500,000 UNITS/5 ML UDCUP SSW SCH ×4 (08:53→20:56)
[2020-06-09] MEDS: hydrALAZINE 25 MG TAB PO SCH ×3 (08:53→20:56)
[2020-06-09] MEDS: Pantoprazole 40 MG GRANULES PACKET PO SCH (08:53)
[2020-06-09] MEDS: Megestrol Acetate 400 MG/10 ML UDCUP PO SCH (08:53)
[2020-06-09] MEDS: Polyethylene Glycol 3350 17 GM Packet PO SCH (08:53)
[2020-06-09] MEDS: Aspirin 81 mg Enteric Coated Tablet PO SCH (08:53)
--- NOTE | 2020-06-09 09:18 | PRG ---
DATE OF SERVICE: 06/09/2020 SUBJECTIVE: The patient is doing better this morning. She had a good night. This morning, she is eating a little better. She is on pureed diet, requires someone to assist to feed her. OBJECTIVE: GENERAL: The patient is sitting up in a bedside chair. She is eating. She is alert, appears in no distress. VITAL SIGNS: Her temp is 97.5, pulse 79, respirations 18, O2 saturation 98% on room air, blood pressure 111/65. Weight is stable at 103. LUNGS: Clear. HEART: Regular rate. EXTREMITIES: No edema. ASSESSMENT: 1. Generalized weakness, severe. a. Secondary to severe deconditioning from recent coronavirus disease with pneumonia and UTI. b. Requires assistance with all her ADLs, tolerating sitting up in a chair, and able to take a few steps with assistance as of 06/09. 2. Coronavirus pneumonia. a. Hospitalized at [facility] from 05/16 until 05/21 for pneumonia and UTI. b. Clinically resolved with clear lungs and afebrile as of 06/09. 3. Anorexia. a. Eating a little better as of 06/09. 4. Hypertension. 5. Dementia. 6. 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 7. Coronary artery disease, asymptomatic. 8. Depression, stable. 9. Hypothyroidism. 10. Chronic kidney disease. PLAN: Continue present care. We will recheck CMP and CBC in the morning. Later this week, plan on discharge into the care of her niece, Jaky Oliveira. [facility] ID: [id number] [facility]
[2020-06-09] MEDS: Amlodipine 5 MG TAB PO SCH (20:56)
[2020-06-10 05:31] LABS: #Basophils 0.1 thou/uL (0.0-0.2); #Eosinphils 0.3 thou/uL (0.0-0.7); #Lymphocytes 1.3 thou/uL (1.20-3.40); #Monocytes 0.5 thou/uL (0.11-0.59); #Neutrophils 6.4 thou/uL (1.40-6.50); %Basophils 0.9 % (0.0-1.0); %Eosinophils 3.9 % (0.0-10.0); %Monocytes 5.7 % (0.0-10.0); %Neutrophils 74.5 % (42.0-75.0); Hemoglobin 11.6 g/dL (12.0-16.0); Mean Corpuscular Hemoglobin 28.8 pg (27.0-31.0); Mean Corpuscular Volume 92.9 fL (78.0-98.0); Mean Platelet Volume 9.7 fL (7.4-10.4); Platelet Count 244 thou/uL (130-400); RBC Distribution Width 14.8 % (11.5-14.5); Red Blood Cell (RBC) Count 4.04 mill/uL (4.20-5.40); White Blood Cell (WBC) Count 8.6 thou/uL (4.8-10.8)
[2020-06-10] MEDS: Levothyroxine Sodium 75 MCG TAB PO SCH (05:32)
[2020-06-10 05:47] LABS: ALT (SGPT) 14 U/L (8-55); AST (SGOT) 17 U/L (5-34); Albumin 3.7 g/dL (3.4-4.8); Alkaline Phosphatase 101 U/L (40-110); Anion Gap 18 mmol/L (10-20); BUN (Urea Nitrogen) 43 mg/dL (9.8-20.1); Bilirubin, Total 0.3 mg/dL (0.2-1.2); Calc. Creatinine Clearance 19 mL/min (70-130); Carbon Dioxide 18 mmol/L (23-31); Chloride 121 mmol/L (98-107); Estimated GFR-MDRD 38; Glucose 94 mg/dL (83-110); Potassium 5.1 mmol/L (3.5-5.1); Protein, Total 7.7 g/dL (6.0-8.3); Sodium 152 mmol/L (136-145)
[2020-06-10] MEDS: Aspirin 81 mg Enteric Coated Tablet PO SCH (08:15)
[2020-06-10] MEDS: hydrALAZINE 25 MG TAB PO SCH ×3 (08:15→21:00)
[2020-06-10] MEDS: Nystatin 500,000 UNITS/5 ML UDCUP SSW SCH ×4 (08:16→21:00)
[2020-06-10] MEDS: Pantoprazole 40 MG GRANULES PACKET PO SCH (08:16)
[2020-06-10] MEDS: Polyethylene Glycol 3350 17 GM Packet PO SCH (08:16)
[2020-06-10] MEDS: Megestrol Acetate 400 MG/10 ML UDCUP PO SCH (08:16)
[2020-06-10] MEDS: Amlodipine 5 MG TAB PO SCH (21:00)
[2020-06-11] MEDS: Levothyroxine Sodium 75 MCG TAB PO SCH (05:25)
[2020-06-11] MEDS: Aspirin 81 mg Enteric Coated Tablet PO SCH (08:28)
[2020-06-11] MEDS: Acetaminophen 325 MG TAB PO PRN (08:28)
[2020-06-11] MEDS: Pantoprazole 40 MG GRANULES PACKET PO SCH (08:28)
[2020-06-11] MEDS: Polyethylene Glycol 3350 17 GM Packet PO SCH (08:28)
[2020-06-11] MEDS: Nystatin 500,000 UNITS/5 ML UDCUP SSW SCH ×4 (08:28→20:33)
[2020-06-11] MEDS: hydrALAZINE 25 MG TAB PO SCH ×3 (08:28→20:32)
[2020-06-11] MEDS: Megestrol Acetate 400 MG/10 ML UDCUP PO SCH (08:28)
--- NOTE | 2020-06-11 10:35 | PRG ---
DATE OF SERVICE: 06/11/2020 SUBJECTIVE: Nurses report no change in patient. She still eats poorly. Usually a challenge to get her to eat a few bites. They did get her to take her medication. OBJECTIVE: GENERAL: The patient is lying in bed, alert, appears in no distress. VITAL SIGNS: Temperature 98.1, pulse 83, respirations 18, O2 saturation 97% on room air, blood pressure 135/77. LUNGS: Clear. HEART: Regular rate. SKIN: Turgor good. Mucous membranes of the mouth are moist. ASSESSMENT: 1. Generalized weakness, severe. a. Secondary to severe deconditioning from recent coronavirus disease with pneumonia and also urinary tract infection. b. Requires assistance with all her ADLs. Tolerates sitting up in a chair, able to take few steps, but requires assistance as of 06/11. 2. Coronavirus pneumonia. a. Hospitalized at [facility] from 05/16 to 05/21 for pneumonia and UTI. b. Clinically resolved. Lungs remain clear and the patient is afebrile as of 06/11. 3. Anorexia. a. The patient is on Megace. b. Takes a great deal of encouragement to get the patient to eat a few bites. c. Etiology probably recent coronavirus infection and also pre-existing dementia. 4. Hypertension. 5. Dementia. 6. 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 7. Depression, stable. 8. Hypothyroidism. 9. Chronic kidney disease. PLAN: The lab studies that were done yesterday showed a mild elevation of her sodium. Her renal function looks about the same. We will continue to try to encourage liquids. The patient may do better in her home environment, where she has her niece who is used to feeding her. Her long-term prognosis remains poor and certainly, the niece may want to consider hospice care for Mrs. Jenkins. Job ID: [id number] [facility]
[2020-06-11] MEDS: Amlodipine 5 MG TAB PO SCH (20:32)
[2020-06-12] MEDS: Levothyroxine Sodium 75 MCG TAB PO SCH (05:29)
[2020-06-12 07:51] VITALS: BP 117/59; TEMP 97
[2020-06-12] MEDS: Polyethylene Glycol 3350 17 GM Packet PO SCH (08:15)
[2020-06-12] MEDS: Nystatin 500,000 UNITS/5 ML UDCUP SSW SCH (08:16)
[2020-06-12] MEDS: Megestrol Acetate 400 MG/10 ML UDCUP PO SCH (08:16)
[2020-06-12] MEDS: Aspirin 81 mg Enteric Coated Tablet PO SCH (08:16)
[2020-06-12] MEDS: hydrALAZINE 25 MG TAB PO SCH (08:16)
[2020-06-12] MEDS: Pantoprazole 40 MG GRANULES PACKET PO SCH (08:17)
--- NOTE | 2020-06-15 09:05 | DIS ---
DATE OF ADMISSION: 05/21/2020 DATE OF DISCHARGE: 06/12/2020 FINAL DIAGNOSES: 1. Generalized weakness, severe. a. Secondary to severe deconditioning from recent coronavirus disease with pneumonia and also urinary tract infection. b. Requires assistance with all her ADLs. Able to walk up to 200 feet with assistance and requires assistance with transfers as of 06/12. 2. Coronavirus pneumonia. a. Hospitalized at [facility] from 05/16 to 05/21 for pneumonia and also for urinary tract infection. b. Pneumonia, clinically resolved. Lungs remain clear and O2 saturation in the high 90s on room air as of 06/12. c. COVID-19 nasal swab positive on 05/16. SARS-CoV-2 IgG antibody positive on 05/17. 3. Anorexia. a. Etiology secondary to recent COVID infection and also pre-existing dementia. b. Admission weight 110, discharge weight 103. c. Treated for 9 days with partial parenteral nutrition with Clinimix. 4. Hypertension. 5. Dementia. 6. 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 7. Coronary artery disease, asymptomatic. 8. History of depression. 9. Gastroesophageal reflux disease. 10. Hypothyroidism. REASON FOR ADMISSION: The patient is an 84-year-old Krish female who has a history of hypertension, coronary artery disease, depression, hypothyroidism, and dementia. She resides at home with her older sister and is cared for by her niece, Jaky Oliveira. Her older sister had become sick from the COVID virus. The patient then also became sick with decline in her mental status with increased confusion, increased weakness, and some diarrhea. Her sister had tested positive for the COVID. The patient was hospitalized at [facility] where her COVID nasal swab on 05/16 was positive and her SARS-CoV-2 IgG antibody was positive with reading of 5.75 on 05/17. Her chest x-ray showed bilateral mid and lower lobe infiltrates. She was also found to have an infection in her urine from E. coli with colony count greater than 100,000 with gardner sensitivity. She was treated with IV antibiotics and the urinary tract infection was clear. O2 saturation remained in the mid 90s on room air, and she was not coughing. Her lungs are clear. She was left very very weak and was just not eating. She had been losing some weight even prior to this sickness, but now it seems like she just would not eat at all. She was started on Megace to try to stimulate her appetite and was started on partial parenteral nutrition using Clinimix. She was then transferred to [facility] on 05/21/2020 in an effort to try to continue to stimulate her appetite, to continue the Clinimix IV and for PT and OT. The patient's hospitalization was one of gradual improvement as far as her strength. She gradually was able to be up in a chair and gradually was able to walk with usually 2 people assisting up to as much as 240 feet. She required assistance with transfers. She often refused any therapy and most of the time, she preferred just staying in her bed. Her appetite remained very very poor. She was edentulous and was given a pureed diet and required someone to feed her and much encouragement and even with this, she ate very little in spite of the Megace. Her niece, who is her primary caregiver, was able to get her to eat more than what the nurses could, probably due to her familiarity with her. The patient's weight dropped from an admission weight of 110 to a discharge weight of 103. Her condition stabilized. Her lungs remained clear. Her anorexia persisted and it continued to be a struggle to get her to eat much. The etiology of this was felt to be from the recent COVID infection, but also probably from her dementia. Some of this had been pre- existing, but recent infection has certainly contributed to this. I visited with her niece, Jaky Oliveira, and she was wanting to try to take her home and care for her there along with her sister. She thought back in her usual environment that she might do better and might begin eating again. This seemed like a reasonable approach. If her condition deteriorates, then certainly she could consider long-term placement or staying in the home maybe under hospice care. Her repeat lab work had shown that she has chronic kidney disease. She also was mildly hypernatremic. Hopefully with the increasing fluids and encouragement from her niece in her home that she will eat and take fluids better. Her long-term prognosis though is very poor. The patient will be discharged to her home where her niece, Jaky Oliveira, will take care of her. Home Health will look in on her and will continue PT and OT. DIET: Pureed diet. ACTIVITIES: Up in a chair as tolerated. [facility] will see and will arrange in-home PT and OT. MEDICATIONS: 1. Acetaminophen 325 mg two every 4 hours as needed. 2. Amlodipine 5 mg daily. 3. Aspirin 81 mg daily. 4. Dulcolax suppository 10 mg per rectum daily p.r.n. 5. Hydralazine 25 mg t.i.d. 6. Levothyroxine 75 mcg daily. 7. Milk of magnesia 30 mL daily p.r.n. 8. Megace 400 mg daily. 9. Pantoprazole 40 mg daily. 10. MiraLAX 17 g in 8 ounces of water daily. 11. Sertraline 25 mg at bedtime. FOLLOWUP: [facility] will see her and try to see patient in 2 weeks by telemedicine and followup with myself. CODE STATUS: Full code. Job ID: [id number] MTDD
--- NOTE | 2020-06-16 00:45 | PQF ---
CLINICAL DOCUMENTATION CLARIFICATION FORM: Dear : Denton Yan MD Date / Time: 06/16/2020 Please exercise your independent, professional judgment in responding to the clarification form. Clinical indicators are provided on the bottom of this form for your revie Please check appropriate box(es): [ x] Protein Calorie Malnutrition: [ ] Mild [ x ] Moderate [ ] Severe [ ] Other Malnutrition (please specify) [ ] Underweight without malnutrition [ x ] Cachexia [ ] Other diagnosis (please specify if any) [ ] Unable to determine In addition, please specify: Present on Admission (POA): [ ] Yes [ ] No [ ] Unable to determine Physician Signature: Date/Time: For continuity of documentation, please document condition throughout progress notes and discharge summary. Thank You. To be completed by CDI/Coding staff for physician review: Present Clinical Indicators - Signs / Symptoms / Labs Results and Location in Medical Record [x] Malnutrition, Failure to Thrive, Cachexia Malnutrition H&P on 05/21 [x] BMI of 20.2 kg/m2 H&P on 05/21 Two or More of the Following ASPEN Criteria: [ x ] Unintentional Insufficient Energy Intake [x] Weight Loss Anorexia complicated by weight loss H&P on 05/21 [x ] Loss of Muscle Mass [ ] Loss of Subcutaneous Fat [x] Some pre-existing weight loss and anorexia from probably her dementia Progress notes on 05/26 [x] Anemia H&P on 05/21 Present Risk Factors Results and Location in Medical Record [x ] Change in appetite / nausea / vomiting / diarrhea H&P on 05/21 [ X ] Aged person 84 yrs H&P on 05/21 [ ] Chronic illness cancer, cirrhosis [ ] Medication [ ] PEG tube [ ] Short gut syndrome Present Treatments Results and Location in Medical Record [x] Has been started on Megace H&P on 05/21 [x] Has been placed on clinimix IV for a week to try to help with her malnutrition H&P on 05/21 [x] The dietitian has been her and recommended increasing the PPN to 75ml per hour to provide all her protein needs Progress notes on 05/24 [x] Clinimix 4.25%-5% 2,000ml IV daily Medication from 05/29 to 06/01 [ x ] Megestrol acetate 400 mg PO Medication from 05/22 to 06/12 [facility]per Signature: YULIANA Phone #: Date/Time: YULIANA Moderate Malnutrition (in acute illness) ? Energy Intake: <75% of estimated energy requirement for > 7 days ? Weight Loss: 1-2%/1 week; 5%/ 1 month; 7.5%/3 months ? Other: mild body fat loss; mild muscle mass loss; mild fluid accumulation; Severe Malnutrition (in acute illness) ? Energy Intake: ? 50% of estimated energy requirement for ? 5 days ? Weight Loss: >2%/1 week; >5%/1 month; >7.5%/3 months ? Other: moderate body fat loss; moderate muscle mass loss; moderate- severe fluid accumulation; measurably reduced pecan picker strength Moderate Malnutrition (in chronic illness) ? Energy Intake: <75% of estimated energy requirement for ?1 month ? Weight Loss: 5%/1 month; 7.5%/3 months; 10%/6 months; 20%/1 year ? Other: mild body fat loss; mild muscle mass loss; mild fluid accumulation Severe Malnutrition (in chronic illness) ? Energy Intake: ?75% of estimated energy requirement for ?1 month ? Weight Loss: >5%/1 month; >7.5%/3 months; >10%/6 months; >20%/1 year ? Other: severe body fat loss; severe muscle mass loss; severe fluid accumulation; measurably reduced pecan picker strength This is a permanent part of the Medical Record [facility]
== END 2020-06-12 13:17 | disposition home health service (06) | DRG 884 ==
LOC: MADMS 14:42
PROVIDERS: ADMIT Family Medicine; ATTEND Family Medicine
PROC: 8E0ZXY6 Isolation (ICD-10-PCS; principal; 2020-05-21)
DX: F03.90 Unspecified dementia, unspecified severity, without behavioral disturbance, psychotic disturbance, mood disturbance, and anxiety (principal); E44.0 Moderate protein-calorie malnutrition; R64 Cachexia; E87.0 Hyperosmolality and hypernatremia; R53.1 Weakness; I25.10 Atherosclerotic heart disease of native coronary artery without angina pectoris; I49.5 Sick sinus syndrome; Z95.0 Presence of cardiac pacemaker; F41.9 Anxiety disorder, unspecified; J45.909 Unspecified asthma, uncomplicated; K21.9 Gastro-esophageal reflux disease without esophagitis; D64.9 Anemia, unspecified; E78.5 Hyperlipidemia, unspecified; M19.90 Unspecified osteoarthritis, unspecified site; E89.0 Postprocedural hypothyroidism; I12.9 Hypertensive chronic kidney disease with stage 1 through stage 4 chronic kidney disease, or unspecified chronic kidney disease; R63.0 Anorexia; N18.9 Chronic kidney disease, unspecified; R00.1 Bradycardia, unspecified; Z68.20 Body mass index [BMI] 20.0-20.9, adult; E87.5 Hyperkalemia; R94.5 Abnormal results of liver function studies
CPT/HCPCS: 36415; 80048; 80053; 84443; 85025

== ENCOUNTER 2020-08-17 12:10 | Outpatient (CLI) | payer MEDICARE ==
[2020-08-17 12:26] LABS: Bilirubin Negative (Negative); Blood, Urine Trace (Negative); Clarity Slightly Cloudy (Clear); Glucose, Urine (Dipstick) Negative (Negative); Ketone, Urine Negative (Negative); Leukocyte Negative (Negative); Nitrite Negative (Negative); Protein, Urine (Dipstick) 30 mg/dL (Neg-Trace); Specific Gravity, Urine 1.015 (1.005-1.030); Urobilinogen 0.2 mg/dL (Less than 2)
[2020-08-17 12:37] LABS: pH, Urine Greater/Equal 9.0 (5.0-9.0)
[2020-08-17 12:40] LABS: Bacteria/HPF 4+ HPF (None Seen); Squamous Epithelial 0-3 HPF (0-3); WBC/HPF 0-3 HPF (0-3)
[2020-08-17 12:41] LABS: Triple Phosphate Crystal 1+ HPF (None Seen)
== END 2020-08-17 12:11 | disposition home or self-care (01) ==
LOC: MADLAB 12:10
PROVIDERS: ATTEND Family Medicine
DX: I12.9 Hypertensive chronic kidney disease with stage 1 through stage 4 chronic kidney disease, or unspecified chronic kidney disease (principal); N18.9 Chronic kidney disease, unspecified
CPT/HCPCS: 81001; 87077; 87086; 87186

== ENCOUNTER 2020-12-19 14:39 | Emergency (ER) | payer MEDICARE, OTHER | END 2020-12-19 16:00 | disposition home or self-care (01) | LOC: MADERS 14:39 | DX: L89.152 Pressure ulcer of sacral region, stage 2 (principal); M25.50 Pain in unspecified joint; E78.5 Hyperlipidemia, unspecified; I25.10 Atherosclerotic heart disease of native coronary artery without angina pectoris; E03.9 Hypothyroidism, unspecified; I10 Essential (primary) hypertension; Z87.891 Personal history of nicotine dependence | CPT/HCPCS: 72170 ==

== ENCOUNTER 2021-08-23 13:20 | Outpatient (CLI) | payer MEDICARE, OTHER ==
[2021-08-23 13:31] LABS: #Eosinphils 0.2 thou/uL (0.0-0.7); #Monocytes 0.3 thou/uL (0.11-0.59); #Neutrophils 6.3 thou/uL (1.40-6.50); %Basophils 0.6 % (0.0-1.0); %Eosinophils 2.6 % (0.0-10.0); %Lymphocytes 12.4 % (21.0-51.0); %Monocytes 3.5 % (0.0-10.0); %Neutrophils 80.9 % (42.0-75.0); Hemoglobin 11.3 g/dL (12.0-16.0); Mean Corpuscular HGB CONC 30.4 g/dL (32.0-36.0); Mean Corpuscular Hemoglobin 30.3 pg (27.0-31.0); Mean Corpuscular Volume 99.8 fL (78.0-98.0); Mean Platelet Volume 10.2 fL (7.4-10.4); Platelet Count 277 thou/uL (130-400); RBC Distribution Width 13.2 % (11.5-14.5); Red Blood Cell (RBC) Count 3.73 mill/uL (4.20-5.40); White Blood Cell (WBC) Count 7.8 thou/uL (4.8-10.8)
[2021-08-23 15:07] LABS: ALT (SGPT) 164 U/L (8-55); AST (SGOT) 151 U/L (5-34); Albumin 3.4 g/dL (3.4-4.8); Alkaline Phosphatase 107 U/L (40-110); Anion Gap 16 mmol/L (10-20); BUN (Urea Nitrogen) 57 mg/dL (9.8-20.1); Bilirubin, Total 0.2 mg/dL (0.2-1.2); Calc. Creatinine Clearance 0 mL/min (70-130); Calcium 10.3 mg/dL (7.8-10.44); Carbon Dioxide 24 mmol/L (23-31); Chloride 121 mmol/L (98-107); Globulin 3.5 g/dL (2.4-3.5); Glucose 103 mg/dL (83-110); Potassium 4.8 mmol/L (3.5-5.1); Protein, Total 6.9 g/dL (5.8-8.1); Sodium 156 mmol/L (136-145)
== END 2021-08-23 13:21 | disposition home or self-care (01) ==
LOC: MADLAB 13:20
PROVIDERS: ATTEND Family Medicine
DX: I12.9 Hypertensive chronic kidney disease with stage 1 through stage 4 chronic kidney disease, or unspecified chronic kidney disease (principal); N18.30 Chronic kidney disease, stage 3 unspecified; E03.9 Hypothyroidism, unspecified
CPT/HCPCS: 80053; 84443; 85025

== ENCOUNTER 2021-09-13 14:35 | Outpatient (CLI) | payer MEDICARE, OTHER ==
[2021-09-13 15:50] LABS: ALT (SGPT) 69 U/L (8-55); AST (SGOT) 48 U/L (5-34); Albumin 3.1 g/dL (3.4-4.8); Alkaline Phosphatase 86 U/L (40-110); Anion Gap 15 mmol/L (10-20); BUN (Urea Nitrogen) 34 mg/dL (9.8-20.1); Bilirubin, Total Less than 0.2 mg/dL (0.2-1.2); Calc. Creatinine Clearance 0 mL/min (70-130); Calcium 10.1 mg/dL (7.8-10.44); Carbon Dioxide 23 mmol/L (23-31); Chloride 114 mmol/L (98-107); Globulin 3.7 g/dL (2.4-3.5); Glucose 147 mg/dL (83-110); Protein, Total 6.8 g/dL (5.8-8.1); Sodium 147 mmol/L (136-145)
== END 2021-09-13 14:36 | disposition home or self-care (01) ==
LOC: MADLAB 14:35
PROVIDERS: ATTEND Family Medicine
DX: N18.30 Chronic kidney disease, stage 3 unspecified (principal)
CPT/HCPCS: 80053